=== PATIENT | male | born 1965 | race American Indian/Alaskan Native ===

== ENCOUNTER 2019-03-14 10:15 | Day surgery (SDC) | payer OTHER ==
[~2019-03-14 10:15] MED LIST: NACL 0.9% 1000 ML 1,000 ML IV SCH
--- NOTE | 2019-03-14 11:11 | Anesthesia Day of Surgery ---
Anesthesia Day of Surgery - Day of Surgery Patient Examined: Yes Patient H&P Reviewed: Yes Patient is NPO: Yes
--- NOTE | 2019-03-14 11:11 | Anesthesia Consultation ---
Anesthesia Consult and Med Hx Date of service: 03/14/19 - Airway Anesthetic Teeth Evaluation: Good ROM Head & Neck: Adequate Mallampati Class: Class II Intubation Access Assessment: Probably Good - Pre-Operative Health Status ASA Pre-Surgery Classification: ASA3 Proposed Anesthetic Plan: MAC - Pulmonary Hx Smoking: Yes Hx Sleep Apnea: Yes (stopped using CPAP) - Cardiovascular System Hx Hypertension: Yes - Central Nervous System Hx Back Pain: Yes (has plates and screws) Hx Psychiatric Problems: Yes (PTSD) - Other Systems Hx Obesity: Yes (BMI 34.6)
[2019-03-14] MEDS ORDERED: XYLOCAINE MPF 2% ONE (11:30)
[2019-03-14] MEDS ORDERED: WATER FOR IRRIG STERILE ONE (11:50)
[2019-03-14] MEDS ORDERED: WATER FOR IRRIG STERILE IR ONE (11:50)
[2019-03-14] MEDS ORDERED: DIPRIVAN 10 MG/ML IV ONE ×3 (12:52)
--- NOTE | 2019-03-14 13:22 | Discharge Summary ---
Short Stay Discharge Plan Activity: advance as tolerated Weight Bearing Status: Weight Bear as Tolerated Diet: regular Follow up with: [facility] [Primary Care Provider] - 7 Days
--- NOTE | 2019-03-14 13:22 | Operative Report ---
Operative Report Operative Report: Date of procedure: 03/14/2019 Procedure: Colonoscopy with Multiple Hot Biopsy Polypectomies. Attending physician: Roger Cox M.D. Cmo & President: Roger Cox M.D. Indication: Patient is a 53-year-old male who presents for screening colonoscopy. Patient has a family history of colon polyps and also a personal history of recurrent blood in stool/rectal bleeding. This colonoscopy serves to evaluate patient so that treatment may be directed based on the findings. Consent: Informed consent was obtained after advising the patient and family regarding nature of this procedure, its indications, potential benefits as well as possible complications including but not limited to bleeding perforation and adverse reaction to medication, infection as well as other cardiopulmonary complications. An informed written and verbal consent was then obtained after due opportunity was provided for questions and answers. Monitoring: Patient was monitored continuously with pulse oximetry and electrocardiographic recordings as well as blood pressure recordings. Vital signs remained stable throughout this procedure with no untoward events. Preoperative assessment: Patient was assessed immediately prior to this procedure for capacity to tolerate monitored anesthesia care and moderate sedation as well as general anesthesia. Patient's ASA classification is 2, Mallampati class is 2, Hyomental distance is 3. Instrument: Olympus video colonoscope Medications: Propofol given intravenously in divided doses. For details please refer to anesthesia records. Description of procedure: Patient was placed in the left lateral decubitus position after achieving sedation, a digital rectal examination was performed following which the colonoscope was introduced into the anal verge and advanced to the cecum which was identified by the cecal valve, the appendiceal orifice, as well as by the cecal strap and direct transillumination. The colonoscope was subsequently withdrawn with careful inspection of all mucosal surfaces. Patient tolerated this procedure well and was subsequently taken to the recovery room. The following findings were noted. Findings: Patient had a diminutive flat polyp in the sigmoid colon which measured 4-5 mm. The polyp was removed by hot biopsy polypectomy and retrieved. The also was another diminutive flat polyp in the rectum. It was removed by hot biopsy polypectomy. The rest of the colon to the cecum was normal. On the retroflex view at the anal verge, patient had prominent internal hemorrhoids. Impression: Diminutive sigmoid colon polyp status post hot biopsy polypectomy. Diminutive rectal polyp status post hot biopsy polypectomy Prominent Internal hemorrhoids. Plan: Follow pathology report. High-fiber diet. Repeat colonoscopy in 5 years. Patient will likely benefit from outpatient hemorrhoidal band ligation.
[2019-03-14 13:55] VITALS: BP 160/100
== END 2019-03-14 14:04 | disposition home or self-care (01) ==
LOC: GIO 10:15
PROVIDERS: ATTEND Internal Medicine Gastroenterology
DX: Z12.11 Encounter for screening for malignant neoplasm of colon (principal); K63.5 Polyp of colon; K62.1 Rectal polyp; K64.8 Other hemorrhoids; I10 Essential (primary) hypertension; E66.9 Obesity, unspecified; K62.5 Hemorrhage of anus and rectum; G47.33 Obstructive sleep apnea (adult) (pediatric); F41.9 Anxiety disorder, unspecified; F32.9 Major depressive disorder, single episode, unspecified; F17.210 Nicotine dependence, cigarettes, uncomplicated; Z98.890 Other specified postprocedural states; Z83.71 Family history of colonic polyps; Z68.34 Body mass index [BMI] 34.0-34.9, adult
CPT/HCPCS: 45384; 88305; J2704; J7030